=== PATIENT | female | born 1960 | race Caucasian/White ===

== ENCOUNTER 2019-09-04 19:33 | Inpatient (IN) | payer OTHER ==
[~2019-09-04] VITALS: Ht 170.2 cm; Wt 61.2 kg
--- NOTE | 2019-09-04 20:16 | NUR ---
PT CAME TO THE ED C/O R SIDED LOWER QUADRANT ABD PAIN SINCE 1500 TODAY. +N/V. PAIN WORSENS UPON MOVEMENT PER PT. 12/21 PS. PT AAOX4, RESPIRATIONS EVEN AND UNLABORED ON RA W/ NAD NOTED. PT CONNECTED TO THE MONITOR AND POX.
[2019-09-04] MEDS ORDERED: MORPHINE SULFATE INJ 4 MG/ML DISP.SYRIN ONE ×2 (20:22→21:20)
[2019-09-04] MEDS ORDERED: ONDANSETRON HCL/PF 4 MG/2 ML VIAL ONE (20:22)
[2019-09-04] MEDS ORDERED: ACETAMINOPHEN ES 500 MG TABLET ONE (20:22)
[2019-09-04] MEDS ORDERED: ONDANSETRON HCL/PF 4 MG/2 ML VIAL IVP ONE (20:30)
[2019-09-04] MEDS ORDERED: ACETAMINOPHEN ES 500 MG TABLET PO ONE (20:30)
[2019-09-04] MEDS ORDERED: IV NS 0.9% 1,000 ML BAG IV ONE (20:30)
[2019-09-04] MEDS ORDERED: MORPHINE SULFATE INJ 2 MG/ML DISP.SYRIN IV ONE ×2 (20:30→21:30)
[2019-09-04 20:34] LABS: BASOPHILS % (AUTO) 0.3 % (0.0-2.0); EOSINOPHILS % (AUTO) 0.6 % (0.0-6.0); HEMATOCRIT 42 % (33-45); HEMOGLOBIN 13.9 g/dL (11.5-14.8); LYMPHOCYTES # (AUTO) 1.4 /CMM (0.8-4.8); LYMPHOCYTES % (AUTO) 10.6 % (20.0-44.0); MEAN CORPUSCULAR HGB CONC 33 g/dl (31.0-36.0); MEAN CORPUSCULAR VOLUME 100 fL (82-100); MONOCYTES # (AUTO) 0.6 /CMM (0.1-1.30); MONOCYTES % (AUTO) 4.8 % (2.0-12.0); NEUTROPHILS # (AUTO) 10.9 /CMM (1.8-8.9); NEUTROPHILS % (AUTO) 83.7 % (43.0-81.0); PLATELET COUNT (AUTO) 284 /CMM (150-450); RED BLOOD CELL COUNT(AUTO) 4.22 MIL/uL (4.0-5.2)
[2019-09-04 20:43] LABS: CALCIUM, SERUM 9.3 mg/dL (8.5-10.1); CREATININE 0.6 mg/dL (0.6-1.3); POTASSIUM 3.2 mmol/L (3.5-5.1)
[2019-09-04 20:50] LABS: ALBUMIN 3.9 g/dL (3.4-5.0); BILIRUBIN,DIRECT 0.1 mg/dL (0.0-0.2); BILIRUBIN,TOTAL 0.2 mg/dL (0.2-1.0); TOTAL PROTEIN, SERUM 7.8 g/dL (6.4-8.2)
[2019-09-04 20:54] LABS: APPEARANCE,URINE Clear (CLEAR); BILIRUBIN,URINE Negative (NEGATIVE); BLOOD, URINE Negative Ery/uL (NEGATIVE); COLOR,URINE Yellow (YELLOW); KETONES,URINE Negative (NEGATIVE); LEUKOCYTE ESTERASE ,URINE Moderate (NEGATIVE); NITRITE, URINE Negative (NEGATIVE); PROTEIN,URINE Negative (NEGATIVE); UGLUCOSE Negative (NEGATIVE); UROBILINOGEN,URINE 0.2 EU/dL (0.2)
[2019-09-04 21:04] LABS: BACTERIA,URINE Moderate /HPF (None Seen); RBC,URINE 0-2 /HPF (0-2); SQUAMOUS EPITHELIAL CELL,UR Moderate /HPF (None Seen)
--- NOTE | 2019-09-04 21:19 | NUR ---
PT TAKEN TO CT
--- NOTE | 2019-09-04 21:36 | NUR ---
COVID SWAB SENT TO LAB
--- NOTE | 2019-09-04 21:36 | NUR ---
PT BACK FROM CT
[2019-09-04] MEDS ORDERED: PIPERACILLIN /TAZOBACTAM 3.375 G VIAL IV ONE (21:57)
[2019-09-04] MEDS ORDERED: PIPERACILLIN /TAZOBACTAM 3.375 G in IV D5W 50 ML IV ONE (22:00)
--- NOTE | 2019-09-04 22:17 | NUR ---
PAGED DR RUSSELL
--- NOTE | 2019-09-04 22:19 | NUR ---
328-[address] [facility]
[2019-09-04] MEDS ORDERED: IBUPROFEN 600 MG TABLET PO ONE ×2 (22:30→23:07)
--- NOTE | 2019-09-04 23:15 | NUR ---
REPORT GIVEN TO NANDO JAMESON
[2019-09-04] MEDS ORDERED: BUSP10TA3 PO (23:27)
[2019-09-04] MEDS ORDERED: AMLO5TAB9 PO (23:27)
[2019-09-04] MEDS ORDERED: ESCI20TA PO (23:27)
[2019-09-04] MEDS ORDERED: ONDANSETRON HCL/PF 4 MG/2 ML VIAL IVP PRN (23:30)
[2019-09-04] MEDS ORDERED: Z GUARD REMEDY 2 OZ OINT TP PRN (23:30)
[2019-09-04] MEDS ORDERED: ACETAMINOPHEN 325 MG TABLET PO PRN (23:30)
[2019-09-04 23:47] VITALS: BP 101/57
--- NOTE | 2019-09-04 23:47 | NUR ---
MS RN ADMITTING NOTES PATIENT ARRIVED TO UNIT VIA WHEELCHAIR [id number], ACCOMPANIED BY NANDO ROWE; PATIENT AWAKE, A/OX4; BREATHING EVEN AND UNLABORED; NO SOB NOTED; PATIENT TOLERATING ROOM AIR WELL; SKIN ASSESSMENT DONE, NO WOUNDS NOTED; SKIN INTACT; L AC #20 IV SITE CAME OUT; NEW IV ACCESS OBTAINED; R WRIST #22, INFUSING NS @ 100ML/HR, PATIENT TOLERATING FLUIDS WELL; ISOLATION PRECAUTIONS MAINTAINED, AWAITING COVID RESULTS; PATIENT AWARE OF NPO STATUS; MEDICAL HX OBTAINED; PATIENT ORIENTED TO ROOM AND STAFF; PATIENT COMPLAINT OF 9/10 RLQ ABDOMINAL PAIN; VITAL SIGNS STABLE; MORPHINE 2MG ADMINISTERED PER MD ORDER; SAFETY PRECAUTIONS IMPLEMENTED; BED LOCKED IN LOW POSITION; SIDE RAILS X2; CALL LIGHT WITHIN REACH; WILL CONT TO MONITOR
[2019-09-05] VITALS (8 sets, daily range): BP systolic 107–128; BP diastolic 60–74
--- NOTE | 2019-09-05 00:02 | NUR ---
PT TRANSFERRED TO ROOM IN STABLE CONDITION
[2019-09-05] MEDS: PANTOPRAZOLE 40 MG VIAL IV SCH ×2 (00:28→22:21)
[2019-09-05] MEDS: IV NS 0.9% 1,000 ML IV PRN (00:29)
[2019-09-05] MEDS: MORPHINE SULFATE INJ 2 MG/ML DISP.SYRIN IV PRN ×5 (00:31→22:32)
[2019-09-05] MEDS ORDERED: PIPERACILLIN /TAZOBACTAM 2.25 G VIAL IV ONE (02:47)
[2019-09-05] MEDS ORDERED: PIPERACILLIN /TAZOBACTAM 4.5 G in IV D5W 50 ML IV SCH ×3 (04:00)
--- NOTE | 2019-09-05 04:00 | NUR ---
MS RN NOTES PATIENT REQUESTED FOR IVF TO BE STOPPED AFTER ZOSYN FINISHED; PATIENT REPORTED TO RESTART IVF ONCE SHE IS AWAKE; PATIENT WOULD LIKE TO USE BATHROOM AND NOT HAVE TO WAIT FOR US TO DISCONNECT HER FROM IV; WILL CONT TO MONITOR
--- NOTE | 2019-09-05 06:38 | NUR ---
MS RN CLOSING NOTES PATIENT RESTING IN BED COMFORTABLY; A/OX4; BREATHING EVEN AND UNLABORED; NO SOB NOTED; PATIENT TOLERATING ROOM AIR WELL; PATIENT ABLE TO MAKE NEEDS KNOWN; R WRIST # 22 INTACT AND PATENT, FLUSHING WELL; NO S/S OF REDNESS OR INFILTRATION NOTED; ISOLATION PRECAUTIONS MAINTAINED; NPO STATUS MAINTAINED; ALL NEEDS RENDERED; SAFETY PRECAUTIONS IMPLEMENTED; BED LOCKED IN LOW POSITION; SIDE RAILS X2; CALL LIGHT WITHIN EASY REACH; WILL ENDORSE CELSO TO ONCOMING SHIFT
[2019-09-05] MEDS ORDERED: POTASSIUM CHLORIDE 20 MEQ POWDER PACKET NG SCH (07:00)
--- NOTE | 2019-09-05 08:00 | NUR ---
MS RN AM NOTES PATIENT AWAKE, A/OX4; BREATHING EVEN AND UNLABORED; NO SOB NOTED; PATIENT TOLERATING ROOM AIR WELL;SKIN INTACT; RT WRIST #22, INFUSING NS @ 100ML/HR, PATIENT TOLERATING FLUIDS WELL; ISOLATION PRECAUTIONS MAINTAINED, AWAITING COVID RESULTS; PATIENT AWARE OF NPO STATUS; PT IS COMPLIANT.SAFETY PRECAUTIONS IMPLEMENTED; BED LOCKED IN LOW POSITION; SIDE RAILS X2; CALL LIGHT WITHIN REACH; WILL CONT TO MONITOR
[2019-09-05 08:10] LABS: BASOPHILS % (AUTO) 0.2 % (0.0-2.0); HEMATOCRIT 38 % (33-45); HEMOGLOBIN 12.5 g/dL (11.5-14.8); LYMPHOCYTES # (AUTO) 1.2 /CMM (0.8-4.8); LYMPHOCYTES % (AUTO) 12.5 % (20.0-44.0); MEAN CORPUSCULAR HGB CONC 33 g/dl (31.0-36.0); MEAN CORPUSCULAR VOLUME 100 fL (82-100); MONOCYTES # (AUTO) 0.7 /CMM (0.1-1.30); MONOCYTES % (AUTO) 7.4 % (2.0-12.0); NEUTROPHILS # (AUTO) 7.5 /CMM (1.8-8.9); NEUTROPHILS % (AUTO) 78.9 % (43.0-81.0); PLATELET COUNT (AUTO) 247 /CMM (150-450); RED BLOOD CELL COUNT(AUTO) 3.85 MIL/uL (4.0-5.2); WHITE BLOOD COUNT (AUTO) 9.5 K/uL (4.3-11.0)
[2019-09-05] MEDS: ESCITALOPRAM OXALATE (10 MG) 10 MG TABLET PO SCH (08:34)
[2019-09-05] MEDS: busPIRone 5 MG TABLET PO SCH ×3 (08:34→17:20)
[2019-09-05] MEDS: AMLODIPINE BESYLATE 5 MG TABLET PO SCH (08:35)
[2019-09-05 08:47] LABS: CALCIUM, SERUM 8.7 mg/dL (8.5-10.1); CREATININE 0.7 mg/dL (0.6-1.3); MAGNESIUM 1.9 mg/dL (1.8-2.4); PHOSPHORUS 4.4 mg/dL (2.5-4.9); POTASSIUM 3.3 mmol/L (3.5-5.1)
[2019-09-05] MEDS: PIPERACILLIN /TAZOBACTAM 3.375 G in IV D5W 100 ML IV SCH ×2 (08:57→17:20)
[2019-09-05] MEDS ORDERED: POTASSIUM CL. PREMIX PERIPHER. 50 ML IV SCH (09:00)
--- NOTE | 2019-09-05 09:00 | NUR ---
INFUSED ZOSYN IV PRIOR TO ADMINISTERING MAG AND POTASSIUM IV DELAYING THE ELECTROLYTE IV REPLACEMENT INFUSION.
--- NOTE | 2019-09-05 09:20 | NUR ---
SEEN BY BHARTI GAXIOLA AND ORDERED FOR PT TO BE ON NPO EXCEPT MEDS.WE WILL CHANGE POTASSIUM IV TO PO.PT VERBALIZED THAT HER ELECTROLYTES HAS BEEN LOW THAT IS WHY SHE TAKES SUPPLEMENTS DAILY TO REPLACE HER POTASSIUM AND MAGNESIUM.
[2019-09-05] MEDS ORDERED: POTASSIUM CHLORIDE 20 MEQ TAB.PRT.SR PO ONE (10:00)
[2019-09-05] MEDS: Magnesium 1GM/D5W 100ML PREMIX 100 ML IV SCH ×2 (12:06→13:18)
--- NOTE | 2019-09-05 18:58 | NUR ---
Pt brought to OR for Laparoscopic VS Open appendectomy procedure with all the consents signed. Stable VS. Pt denies any pain or distress. Endorsed to night manager nurse care.
--- NOTE | 2019-09-05 19:20 | NUR ---
MS RN NOTES PATIENT CURRENTLY IN OR FOR LAPAROSCOPIC VS OPEN APPENDECTOMY.
[2019-09-05] MEDS ORDERED: MIDAZOLAM HCL 2 MG/2ML VIAL ONE (19:22)
[2019-09-05] MEDS ORDERED: ROCURONIUM BROMIDE 50 MG/5 ML ONE (19:23)
[2019-09-05] MEDS ORDERED: FAMOTIDINE/PF INJ 20 MG/2 ML VIAL IV ONE (19:23)
[2019-09-05] MEDS ORDERED: FENTANYL PF 250MCG/5ML AMPUL ONE (19:23)
[2019-09-05] MEDS ORDERED: BUPIVACAINE MPF W/EPI 0.25% 30 ML VIAL ONE (19:32)
[2019-09-05] MEDS ORDERED: LIDOCAINE HCL/PF 1% 30 ML SDV ONE (19:32)
--- NOTE | 2019-09-05 22:10 | NUR ---
MS RN NOTES RECEIVED PATIENT FROM SURGERY, ALERT AND ORIENTED X 4. VERBALLY RESPONSIVE AND ABLE TO FOLLOW DIRECTIONS. BREATHING REGULAR AND UNLABORED ON OXYGEN AT 2L/MIN VIA NASAL CANNULA. RIGHT WRIST AND RIGHT FOREARM BOTH G22 IV LINES INTACT AND PATENT, INFUSING WELL WITH NO BLEEDING OR S/S OF INFILTRATION NOTED. SEEN WITH ABDOMINAL INCISIONS WITH NO ACTIVE BLEEDING NOTED. DRESSING CLEAN AND DRY. WITH LEFT ABDOMEN THEO DRAIN INTACT WITH MODERATE SEROSANGUINEOUS OUTPUT. COMPLAINED OF 8/10 ABDOMINAL PAIN, NON-PHARMACOLOGICAL INTERVENTIONS PROVIDED. BED LOW AND LOCKED ON SEMI FOWLERS POSITION. WILL CONTINUE TO MONITOR.
--- NOTE | 2019-09-05 22:35 | NUR ---
MS RN NOTES COMPLAINED OF 8/10 ABDOMINAL PAIN, MORPHINE 4MG GIVEN VIA IV PUSH. NON-PHARMACOLOGICAL INTERVENTIONS PROVIDED. VITAL SIGNS WNL. WILL CONTINUE TO MONITOR.
--- NOTE | 2019-09-05 23:00 | NUR ---
MS RN NOTES MAINTAINED NOTHING BY MOUTH PER . PATIENT MADE AWARE.
--- NOTE | 2019-09-05 23:00 | NUR ---
MS RN NOTES REFUSED DVT PUMP PLACEMENT, RISK AND BENEFITS EXPLAINED.
[2019-09-06] MEDS: PIPERACILLIN /TAZOBACTAM 3.375 G in IV D5W 100 ML IV SCH ×3 (00:08→16:08)
[2019-09-06 00:50] VITALS: BP 118/75
[2019-09-06 01:50] VITALS: BP 121/78
--- NOTE | 2019-09-06 07:30 | NUR ---
MS/RN OPENING NOTES Received patient in bed, A&O x 4. Breathing even and non-labored on RA, no SOB noted. No respiratory cardiac distress noted. Patient IV access noted on the right wrist #22, patent and intact, infusing NS @ 100ml/hr. No s/s of infection/infiltration noted on the site. Patient remains NPO, explain its importance. Patient verbalized understanding. J-tube in place, cranberry color output of 10 mL noted. Sensation from all peripheral extremities noted. Fall precautions maintained. Will continue to monitor for any changes in condition.
[2019-09-06 08:00] VITALS: BP 159/86
[2019-09-06] MEDS: busPIRone 5 MG TABLET PO SCH ×3 (08:52→16:07)
[2019-09-06] MEDS: ESCITALOPRAM OXALATE (10 MG) 10 MG TABLET PO SCH (08:52)
[2019-09-06] MEDS: MORPHINE SULFATE INJ 2 MG/ML DISP.SYRIN IV PRN ×2 (08:53→20:21)
[2019-09-06] MEDS: AMLODIPINE BESYLATE 5 MG TABLET PO SCH (08:53)
[2019-09-06 10:02] LABS: ALBUMIN 2.8 g/dL (3.4-5.0); BILIRUBIN,TOTAL 0.3 mg/dL (0.2-1.0); CALCIUM, SERUM 8.6 mg/dL (8.5-10.1); CREATININE 0.7 mg/dL (0.6-1.3); MAGNESIUM 1.9 mg/dL (1.8-2.4); PHOSPHORUS 3.5 mg/dL (2.5-4.9); POTASSIUM 3.8 mmol/L (3.5-5.1); TOTAL PROTEIN, SERUM 6.8 g/dL (6.4-8.2)
[2019-09-06 10:08] LABS: BASOPHILS % (AUTO) 0.1 % (0.0-2.0); HEMATOCRIT 38 % (33-45); HEMOGLOBIN 12.4 g/dL (11.5-14.8); LYMPHOCYTES # (AUTO) 0.8 /CMM (0.8-4.8); MEAN CORPUSCULAR HGB CONC 33 g/dl (31.0-36.0); MEAN CORPUSCULAR VOLUME 100 fL (82-100); MONOCYTES # (AUTO) 0.7 /CMM (0.1-1.30); MONOCYTES % (AUTO) 6.3 % (2.0-12.0); NEUTROPHILS # (AUTO) 9.5 /CMM (1.8-8.9); NEUTROPHILS % (AUTO) 86.6 % (43.0-81.0); PLATELET COUNT (AUTO) 241 /CMM (150-450); RED BLOOD CELL COUNT(AUTO) 3.81 MIL/uL (4.0-5.2)
[2019-09-06] MEDS ORDERED: HYDROCODONE/APAP 5/325MG TABLET PO PRN (14:00)
[2019-09-06] MEDS ORDERED: ZOLPIDEM TARTRATE 5 MG TABLET PO PRN (14:30)
[2019-09-06 16:00] VITALS: BP 160/83
--- NOTE | 2019-09-06 19:00 | NUR ---
MS/RN CLOSING NOTES Patient in bed, A&O x 4. No complaints of pain/discomfort at this time, last norco given at 1412. Breathing even and non-labored on RA, no SOB noted. No cardiac distress noted. Patient IV access noted on the left wrist #18, patent and intact, infusing NS @ 75ml/hr. No s/s of infection/infiltration noted on the site. J-tube drain in place, cranberry output of 15 cc noted. Sensation from all peripheral extremities noted. Patient tolerating clear liquid diet. Patient ambulated in the afternoon, steady gait noted. Fall precautions maintained. Will endorse to shift supervisor film processing nurse.
[2019-09-06 20:00] VITALS: BP 146/85
--- NOTE | 2019-09-06 20:00 | NUR ---
MS RN OPENING NOTE: Received patient in bed, awake and alert. Patient shows no signs of distress. Patient IV access on right wrist; 22gauge. IV site patent, no redness or infiltration. Patient breathing unlabored and even. No SOB. Safety precaution is in place. Bed is in the lowest position, brakes are on, siderails x2 are up, and call light within reach. Will continue care of plan.
--- NOTE | 2019-09-06 20:21 | NUR ---
RN MS NOTE: Patient complain of abdominal pain. Patient states pain is throughout her abdomen. Patient rates pain 10 on a 0-10 scale and is aching. Administered PRN Morphine per order.
[2019-09-06] MEDS: PANTOPRAZOLE 40 MG VIAL IV SCH (22:51)
[2019-09-07] MEDS: PIPERACILLIN /TAZOBACTAM 3.375 G in IV D5W 100 ML IV SCH ×3 (00:24→16:19)
[2019-09-07] MEDS: MORPHINE SULFATE INJ 2 MG/ML DISP.SYRIN IV PRN ×5 (00:25→21:10)
--- NOTE | 2019-09-07 06:40 | NUR ---
MS RN CLOSING NOTE: Patient in bed sleeping comfortably. She shows no signs of distress. She is easily arousal. Paid medication administered per order. Patient breathing is equal and unlabored; no SOB. Safety precaution is maintained; bed in lowest position, side rails x2 are up, bed brakes are on, and call light within reach. Will endorse to oncoming shift.
[2019-09-07 07:08] LABS: BASOPHILS % (AUTO) 0.2 % (0.0-2.0); EOSINOPHILS % (AUTO) 0.4 % (0.0-6.0); HEMATOCRIT 38 % (33-45); HEMOGLOBIN 12.6 g/dL (11.5-14.8); LYMPHOCYTES # (AUTO) 0.9 /CMM (0.8-4.8); LYMPHOCYTES % (AUTO) 11.9 % (20.0-44.0); MEAN CORPUSCULAR HGB CONC 33 g/dl (31.0-36.0); MEAN CORPUSCULAR VOLUME 99 fL (82-100); MONOCYTES # (AUTO) 0.8 /CMM (0.1-1.30); MONOCYTES % (AUTO) 9.7 % (2.0-12.0); NEUTROPHILS # (AUTO) 6.1 /CMM (1.8-8.9); NEUTROPHILS % (AUTO) 77.8 % (43.0-81.0); PLATELET COUNT (AUTO) 233 /CMM (150-450); RED BLOOD CELL COUNT(AUTO) 3.88 MIL/uL (4.0-5.2); WHITE BLOOD COUNT (AUTO) 7.8 K/uL (4.3-11.0)
[2019-09-07 08:00] VITALS: BP_SYST 103; BP_SYST 143; BP_DIAS 56; BP_DIAS 84
--- NOTE | 2019-09-07 08:00 | NUR ---
MS RN OPENING NOTE: Received patient in bed, awake and alert. Patient shows no signs of distress. Patient IV access on right wrist; 22gauge. IV site patent, no redness or infiltration. IVF NS at 100 ml/hr infusing well.Patient breathing unlabored and even. No SOB. Safety precaution is in place. Bed is in the lowest position, brakes are on, siderails x2 are up, and call light within reach. Will continue care of plan.
[2019-09-07] MEDS: busPIRone 5 MG TABLET PO SCH ×3 (08:19→16:02)
[2019-09-07] MEDS: ESCITALOPRAM OXALATE (10 MG) 10 MG TABLET PO SCH (08:19)
[2019-09-07] MEDS: AMLODIPINE BESYLATE 5 MG TABLET PO SCH (08:20)
[2019-09-07] MEDS ORDERED: SALINE NASAL SPRAY 0.65% 1 BOTTLE BOTTLE NS PRN (09:00)
--- NOTE | 2019-09-07 10:11 | NUR ---
PT VERBALIZED THAT SHE HAD A BAD REACTION (BAD RASH) WITH NORCO THE LAST TIME SHE TOOK IT WHEN SHE HAD SHOULDER SX IN THEN PAST. NOTIFIED JOAO BRASWELL NP AND LILIANA MACK. Addendum: 09/07/19 at 1014 by JACINTO LUBIN RN PT VERBALIZED THAT GOOD THING SHE DIDN'T HAVE A REACTION FROM THE NORCO THAT SHE TOOK YESTERDAY AFTERNOON.
--- NOTE | 2019-09-07 10:16 | NUR ---
PT TOOK TYLENOL AT 0830 THIS MORNING DUE TO C/O BAD HEADACHE WITH NO REACTION NOTED. PT DENIES ANY ALLERGIC REACTION.
[2019-09-07] MEDS: IV NS 0.9% 1,000 ML IV PRN (10:18)
[2019-09-07] MEDS ORDERED: HYDROCODONE/APAP 5/325MG TABLET PO PRN (11:00)
[2019-09-07] MEDS ORDERED: ACETAMINOPHEN 325 MG TABLET PO PRN (11:00)
[2019-09-07] MEDS ORDERED: BISACODYL (5 MG) 5 MG TABLET.DR PO PRN (11:30)
[2019-09-07] MEDS: DOCUSATE SODIUM 100 MG CAPSULE PO SCH ×2 (11:34→16:02)
[2019-09-07 16:00] VITALS: BP 152/95
[2019-09-07 16:23] VITALS: BP 152/71
--- NOTE | 2019-09-07 16:29 | NUR ---
PT AMBULATED ALONG THE HALLWAY 4X AND SMOKED OUTSIDE ACCOMPANIED BY STRIKER OFF. STILL HASN'T PASS GAS AND NO BM FOR THE PAST 3 DAYS.
--- NOTE | 2019-09-07 17:10 | NUR ---
PT MADE SMALL BM AND PASSED GAS IN THE TOILET .C/O SEVERE ABD PAIN AND WANTS MORPHINE SULFATE IV.
--- NOTE | 2019-09-07 18:49 | NUR ---
CHANGED PT'S DIET TO FULL LIQUIDS AND MINOR,PROFESSOR OF RHETORIC REMOVE THE THEO DRAIN WITH 5 ML SEROSANGUINEOUS DRAINAGE OUTPUT.NO BLEEDING NOTED.PT TOLERATED WELL.DRESSING CLEAN AND DRY. ENCOURAGED TO CONTINUE WALKING ALONG THE HALLWAY TO PASS GAS EVEN MORE.WILL CONTINUE TO MONITOR. CALL LIGHT PLACED WITHIN REACH.
[2019-09-07 20:00] VITALS: BP 150/87
--- NOTE | 2019-09-07 20:35 | NUR ---
PRN TYLENOL/HEAD ACHE/T 99.2: PRN TYLENOL 650 MG TAB PO ADMINISTERED TO PT FOR C/O HEAD ACHE, NOTED TEMP 99.2. ENCOURAGE INCREASE PO INTAKE, PT ON IVF ORDERED. WILL CONTINUE TO MONITOR AND REASSESS PT.
[2019-09-07] MEDS: PANTOPRAZOLE 40 MG VIAL IV SCH (21:10)
--- NOTE | 2019-09-07 21:10 | NUR ---
PRN MORPHINE: PT C/O 11/21 UPPER AND LOWER ABDL PAIN, S/P LAP APPY, PRN MORPHINE 2MG IVP ADMINISTERED TO PT AT THIS TIME. WILL CONTINUE TO MONITOR AND REASSESS PT.
[2019-09-08] MEDS: MORPHINE SULFATE INJ 2 MG/ML DISP.SYRIN IV PRN ×3 (01:09→09:13)
[2019-09-08] MEDS: PIPERACILLIN /TAZOBACTAM 3.375 G in IV D5W 100 ML IV SCH ×2 (01:09→08:42)
--- NOTE | 2019-09-08 01:15 | NUR ---
MSRN VERBALIZES POST OP PAIN S/P LAP APPY, SCALE OF 10/10 PATIENT STATED. MORPHINE 2MG IVP ADMINISTERED ORDERED. BEDREST FOR NOW, SAFETY PRECAUTIONS EMPHASIZED, CALL LIGHT WITHIN REACH. REMINDED TO CALL STAFF FOR ANY FURTHER DISCOMFORTS. CLOSELY WATCHED.
[2019-09-08] MEDS: IV NS 0.9% 1,000 ML IV PRN (03:49)
[2019-09-08 05:20] VITALS: BP 126/88
--- NOTE | 2019-09-08 05:39 | NUR ---
prn morphine: pt c/o post op pain upper and lower abdl area, 11/21, requesting for morphine. prn morphine 2mg ivp administered at this time. on fall precautions. will continue to monitor and reassess pt.
--- NOTE | 2019-09-08 06:25 | NUR ---
rn notes: pt went down for smoke accompanied by estephania egan
--- NOTE | 2019-09-08 06:40 | NUR ---
rn notes: pt came back to the unit.
--- NOTE | 2019-09-08 06:48 | NUR ---
end of shift report: prn morphine administered to pt for c/o abdominal pain s/p lap appy. iv access remains patent and flushing well, infusing with ns at 100ml/hr, no s/s of iv infiltration noted. tolerated full liquid diet well, no episode of n/v noted throughout the shift. vs remains stable, needs attended. safety precautions for fall remains engaged, call light in reach, will endorse to day rn for continuity of care.
[2019-09-08 08:00] VITALS: BP 142/74
--- NOTE | 2019-09-08 08:00 | NUR ---
MS RN NOTES RECEIVED PT ALERT,AWAKE AND VERBALIZED POST OP PAIN S/P LAP APPY, SCALE OF 8/10 PATIENT STATED. WITH IVF NS AT 100 ML/HR INFUSING WELL. WILL ADMINISTER MORPHINE PRN ORDERED. BEDREST FOR NOW, SAFETY PRECAUTIONS EMPHASIZED, CALL LIGHT WITHIN REACH. REMINDED TO CALL STAFF FOR ANY FURTHER DISCOMFORTS.
[2019-09-08 08:42] VITALS: BP 142/74
[2019-09-08] MEDS: DOCUSATE SODIUM 100 MG CAPSULE PO SCH (08:42)
[2019-09-08] MEDS: AMLODIPINE BESYLATE 5 MG TABLET PO SCH (08:42)
[2019-09-08] MEDS: busPIRone 5 MG TABLET PO SCH ×2 (08:42→12:49)
[2019-09-08] MEDS: ESCITALOPRAM OXALATE (10 MG) 10 MG TABLET PO SCH (08:42)
[2019-09-08] MEDS ORDERED: AMOX-430 PO (12:29)
--- NOTE | 2019-09-08 15:30 | NUR ---
DISCHARGED PT HOME VIA PRIVATE CAR WITH STABLE V/S. DISCHARGE INSTRUCTIONS AND PRESCRIPTIONS GIVEN TO THE PT. IV H/L TO RT WRIST REMOVED WITH NO BLEEDING OR SWELLING NOTED. INSTRUCTED TO F/U WITH THE SURGEON,DR YVONNE CARR IN ONE WEEK. DENIES ANY PAIN OR DISTRESS.
== END 2019-09-08 15:45 | disposition home or self-care (01) | DRG 233 ==
LOC: ER 19:38 → MED 22:19
PROVIDERS: ATTEND Nurse Practitioner Acute Care
PROC: 0DTJ4ZZ Resection of Appendix, Percutaneous Endoscopic Approach (ICD-10-PCS; principal; 2019-09-05)
DX: K35.32 Acute appendicitis with perforation, localized peritonitis, and gangrene, without abscess (principal); E83.42 Hypomagnesemia; K56.7 Ileus, unspecified; Q43.8 Other specified congenital malformations of intestine; K86.1 Other chronic pancreatitis; E87.6 Hypokalemia; N39.0 Urinary tract infection, site not specified; I10 Essential (primary) hypertension; K40.20 Bilateral inguinal hernia, without obstruction or gangrene, not specified as recurrent; Z98.890 Other specified postprocedural states; F32.9 Major depressive disorder, single episode, unspecified; F17.200 Nicotine dependence, unspecified, uncomplicated; Z87.11 Personal history of peptic ulcer disease; Z87.81 Personal history of (healed) traumatic fracture; F10.11 Alcohol abuse, in remission; Y90.9 Presence of alcohol in blood, level not specified; Z79.899 Other long term (current) drug therapy; D72.829 Elevated white blood cell count, unspecified
CPT/HCPCS: 36415; 71045-TC; 80048-TC; 80053-TC; 80061-TC; 80076-TC; 81000-TC; 83690-TC; 83735-TC; 84100-TC; 84703-TC; 85025-TC; 85730-TC; 87081-TC; 87086-TC; 88304-TC; 93307-TC; C9113; G0378; J0690; J1100; J2250; J2270; J2405; J2543; J2704; J2765; J3010; J3475; J3480; J3490; J7030; J7060; U0003-CS

== ENCOUNTER 2020-07-26 06:50 | Inpatient (IN) | payer OTHER ==
[~2020-07-26] VITALS: Ht 170.2 cm; Wt 63.5 kg
[~2020-07-26 06:50] MED LIST: AMLO-212 PO; AMOX-430 PO; BUSP10TA3 PO; ESCI20TA PO
--- NOTE | 2020-07-26 07:07 | NUR ---
PATIENT BIBSELF C/O ABD PAIN SINCE 1 AM AFTER EATING, + N/V, PATIENT STATES THROWING UP BILE. PATIENT A/OX4, RR EVEN AND UNLABORED. PATIENT CONNCETED TO PARKING ENFORCEMENT TECHNICIAN AND POX. WILL CONTINUE TO MONITOR.
[2020-07-26] MEDS ORDERED: MORPHINE SULFATE INJ 4 MG/ML DISP.SYRIN ONE ×2 (07:14→09:08)
[2020-07-26] MEDS ORDERED: FAMOTIDINE/PF INJ 20 MG/2 ML VIAL IV ONE ×2 (07:15→07:30)
[2020-07-26] MEDS ORDERED: ONDANSETRON HCL/PF 4 MG/2 ML VIAL ONE ×2 (07:15→09:08)
[2020-07-26] MEDS ORDERED: IV NS 0.9% 1,000 ML BAG IV ONE (07:30)
[2020-07-26] MEDS ORDERED: MORPHINE SULFATE INJ 2 MG/ML DISP.SYRIN IV ONE ×2 (07:30→09:30)
[2020-07-26] MEDS ORDERED: ONDANSETRON HCL/PF 4 MG/2 ML VIAL IVP ONE ×2 (07:30→09:30)
[2020-07-26 07:52] LABS: BASOPHILS # (AUTO) 0.1 /CMM (0.0-0.2); BASOPHILS % (AUTO) 0.4 % (0.0-2.0); EOSINOPHILS % (AUTO) 0.7 % (0.0-6.0); HEMATOCRIT 46 % (33-45); HEMOGLOBIN 15.5 g/dL (11.5-14.8); LYMPHOCYTES # (AUTO) 2.5 /CMM (0.8-4.8); LYMPHOCYTES % (AUTO) 18.9 % (20.0-44.0); MEAN CORPUSCULAR HGB CONC 34 g/dl (31.0-36.0); MEAN CORPUSCULAR VOLUME 100 fL (82-100); MONOCYTES # (AUTO) 0.6 /CMM (0.1-1.30); MONOCYTES % (AUTO) 4.4 % (2.0-12.0); NEUTROPHILS % (AUTO) 75.6 % (43.0-81.0); PLATELET COUNT (AUTO) 380 /CMM (150-450); RED BLOOD CELL COUNT(AUTO) 4.57 MIL/uL (4.0-5.2); WHITE BLOOD COUNT (AUTO) 13.3 K/uL (4.3-11.0)
[2020-07-26 08:06] LABS: CALCIUM, SERUM 9.8 mg/dL (8.5-10.1); CREATININE 0.7 mg/dL (0.6-1.3); POTASSIUM 4.1 mmol/L (3.5-5.1)
[2020-07-26 08:10] LABS: ALBUMIN 4.4 g/dL (3.4-5.0); BILIRUBIN,DIRECT 0.1 mg/dL (0.0-0.2); BILIRUBIN,TOTAL 0.3 mg/dL (0.2-1.0); TOTAL PROTEIN, SERUM 8.7 g/dL (6.4-8.2)
[2020-07-26] MEDS ORDERED: CT SWABBABLE VALVE TRANS SET 1 EA INFUS.SET MC ONE (08:22)
[2020-07-26] MEDS ORDERED: IOHEXOL-300 100 ML VIAL IV ONE (08:22)
[2020-07-26] MEDS ORDERED: IV NS 0.9% 250 ML IV ONE (08:22)
--- NOTE | 2020-07-26 08:25 | NUR ---
wheeled patient to ct accompanied by jack
--- NOTE | 2020-07-26 08:36 | NUR ---
patient came back from ct
[2020-07-26 08:55] LABS: BILIRUBIN,URINE Negative (NEGATIVE); COLOR,URINE YELLOW (YELLOW); LEUKOCYTE ESTERASE ,URINE Small (NEGATIVE); NITRITE, URINE Positive (NEGATIVE); PROTEIN,URINE Negative (NEGATIVE); UGLUCOSE Negative (NEGATIVE); UROBILINOGEN,URINE 0.2 EU/dL (0.2)
[2020-07-26 09:06] LABS: BACTERIA,URINE Many /HPF (None Seen); RBC,URINE 0-2 /HPF (0-2)
[2020-07-26 09:07] LABS: SQUAMOUS EPITHELIAL CELL,UR Few /HPF (None Seen)
--- NOTE | 2020-07-26 09:14 | NUR ---
covid specimen obtained and sent to lab.
--- NOTE | 2020-07-26 09:19 | NUR ---
CALLED SUR[address] [phone] LEFT [facility] [place].
--- NOTE | 2020-07-26 09:26 | NUR ---
DR. DORADO SPEAKING WITH DR. MARTÍNEZ
[2020-07-26] MEDS ORDERED: Z GUARD REMEDY 2 OZ OINT TP PRN (09:30)
[2020-07-26] MEDS ORDERED: ACETAMINOPHEN 325 MG TABLET PO PRN (09:30)
--- NOTE | 2020-07-26 09:53 | NUR ---
NEGATIVE COVID TEST PER LAB.
[2020-07-26] MEDS ORDERED: PANT40TA49 PO (10:05)
--- NOTE | 2020-07-26 11:00 | NUR ---
GOT BED 312-1
--- NOTE | 2020-07-26 11:05 | NUR ---
report given to Alison COLLIER for olegario
--- NOTE | 2020-07-26 11:19 | NUR ---
wheeled patient via gurney accompanied by emt in no distress going to room 312. RN assigned at bedside to assume care.
--- NOTE | 2020-07-26 11:33 | NUR ---
SOFTWARE PERFORMANCE ENGINEER NOTES RECEIVED PATIENT VIA GURNEY FROM ER DEPARTMENT. PATIENT IS A/O X4. PATIENT IS BREATHING EVENLY AND UNLABORED ON ROOM AIR. O2 SATURATION WAS 98%, HR 79 TEMP 98.7, RR 18 AND BP 128/78. PATIENT'S SKIN INTACT. PATIENT IS AMBULATORY. PATIENT HAS LAC #20 GAUGE PATENT AND INTACT. PATIENT IS NPO. PATIENT HAS NGT CONNECTED TO SUCTION. PATIENT WAS ORIENTED TO THE ROOM. SAFETY MEASURES ARE IN PLACE BED LOW LOCKED AND CALL LIGHT WITHIN REACH. WILL CONTINUE TO MONITOR.
[2020-07-26] MEDS ORDERED: DIATR MEGLU/DIATRIZOATE SODIUM 120 ML BOTTLE (GASTROGRAPHIN) ONE (11:38)
[2020-07-26] MEDS: IV 1/2NS 1000 ML 1,000 ML IV PRN (11:47)
[2020-07-26] MEDS: PANTOPRAZOLE 40 MG VIAL IV SCH (11:56)
[2020-07-26] MEDS ORDERED: ZOSYN IVPB 3.375 G in IV D5W 50ml IV ONE (13:00)
[2020-07-26] MEDS ORDERED: PIPERACILLIN /TAZOBACTAM 2.25 G in IV D5W 50 ML IV SCH (13:00)
[2020-07-26] MEDS: MORPHINE SULFATE INJ 2 MG/ML DISP.SYRIN IV PRN ×3 (15:18→23:39)
[2020-07-26 16:00] VITALS: BP 100/58
--- NOTE | 2020-07-26 16:26 | NUR ---
RN NOTES PATIENT HAS NGT SUPPOSED TO BE CONNECTED TO SUCTION. MD ORDERED SMALL BOWEL OBSTRUCTION FOLLOW THROUGH SERIES WHICH NEEDS PATIENT TO BE OFF SUCTIONING FOR NOW. MD AWARE. WILL RECONNECT SUCTION ONCE SERIES IS COMPLETE.
--- NOTE | 2020-07-26 18:47 | NUR ---
MS RN CLOSING NOTE PATIENT IS IN BED RESTING. PATIENT IS A/O X4. PATIENT IS BREATHING EVENLY AND UNLABORED ON ROOM AIR. BREATHING EVENLY AND UNLABORED. NO SIGNS OF DISTRESS NOTED. PATIENT'S SKIN INTACT. PATIENT IS AMBULATORY. PATIENT HAS LAC #20 GAUGE PATENT AND INTACT RUNNING 1/2 NS @ 75ML/HR. PATIENT IS NPO. PATIENT HAS NGT PAIN MEDICATION GIVEN NEEDED. SAFETY MEASURES ARE IN PLACE BED LOW LOCKED AND CALL LIGHT WITHIN REACH. WILL ENDORSE TO NEXT SHIFT
[2020-07-26] MEDS: ONDANSETRON HCL/PF 4 MG/2 ML VIAL IVP PRN (19:30)
--- NOTE | 2020-07-26 19:45 | NUR ---
MS RN NOTES RECEIVED ON BED A/O X4,BREATHING EASY,NO SOB,WITH NGT IN PLACE ,CLAMP AT THE MOMENT AWAITING X-RAY SERIES IS DONE AT 1999.PRESENT IVF INFUSING WELL ON LEFT AC VIA IV PUMP SITE PATENT.NPO STATUS,AMBULATES WITH STEADY GAIT.ABDOMINAL PAIN TOLERABLE AT THE MOMENT.CALL LIGHT IN REACH,NEEDS ANTICIPATED.
[2020-07-26 20:00] VITALS: BP 134/99
[2020-07-26] MEDS: PIPERACILLIN /TAZOBACTAM 3.375 G in IV D5W 100 ML IV SCH (20:18)
--- NOTE | 2020-07-26 23:39 | NUR ---
MS RN NOTES C/O ABDOMINAL PAIN 8/10 ON PAIN SCALE,MORPHINE 1MG IV GIVEN ORDERED.
--- NOTE | 2020-07-27 00:30 | NUR ---
MS RN NOTES YARN CARRIER AT BEDSIDE FOR SMALL BOWEL FOLLOW THRU SERIES
--- NOTE | 2020-07-27 02:00 | NUR ---
MS RN NOTES RADIOLOGY AT BEDSIDE,,FOLLOW SMALL BOWEL FOLLOW THRU SERIES
[2020-07-27] MEDS: PIPERACILLIN /TAZOBACTAM 3.375 G in IV D5W 100 ML IV SCH ×3 (03:57→19:57)
--- NOTE | 2020-07-27 04:00 | NUR ---
MS RN NOTES LAST X-RAY FOR SMALL BOWEL FOLLOW THRU SERIES
[2020-07-27] MEDS: MORPHINE SULFATE INJ 2 MG/ML DISP.SYRIN IV PRN ×4 (06:27→19:45)
--- NOTE | 2020-07-27 06:27 | NUR ---
MS RN NOTES C/O ABDOMINAL PAIN 8/10 ON PAIN SCALE,MORPHINE 1MG IV GIVEN PER PATIENT REQUEST.
[2020-07-27 06:45] LABS: BASOPHILS # (AUTO) 0.1 /CMM (0.0-0.2); BASOPHILS % (AUTO) 0.6 % (0.0-2.0); HEMATOCRIT 46 % (33-45); HEMOGLOBIN 15.9 g/dL (11.5-14.8); LYMPHOCYTES # (AUTO) 1.7 /CMM (0.8-4.8); LYMPHOCYTES % (AUTO) 11.3 % (20.0-44.0); MEAN CORPUSCULAR HGB CONC 34 g/dl (31.0-36.0); MEAN CORPUSCULAR VOLUME 100 fL (82-100); MONOCYTES % (AUTO) 6.9 % (2.0-12.0); NEUTROPHILS # (AUTO) 12.2 /CMM (1.8-8.9); NEUTROPHILS % (AUTO) 81.2 % (43.0-81.0); PLATELET COUNT (AUTO) 390 /CMM (150-450); RED BLOOD CELL COUNT(AUTO) 4.66 MIL/uL (4.0-5.2)
--- NOTE | 2020-07-27 06:59 | NUR ---
MS RN NOTES KEPT NPO ORDERED,AWAITING SURGICAL CONSULT/ INTERVENTION.SMALL BOWEL FOLLOW THROUGH SHOWS PARTIAL SMALL BOWEL OBSTRUCTION VS ILEUS.STILL WITH ABDOMINAL PAIN ON AND OFF,MANAGE WITH MORPHINE 1MG IV.NGT NOW CONNECTED TO WALL SUCTION AT LIS,NO OUTPUT.CALL LIGHT IN REACH,NEEDS ATTENDED.
--- NOTE | 2020-07-27 07:55 | NUR ---
MS RN OPENING NOTE PATIENT IS IN BED RESTING, PATIENT IS IN NO ACUTE DISTRESS, PATIENT IS ON ROOM AIR, TOLERATING WELL. NO SOB NOTED. PATIENT IS ON NG-TUBE WITH INTERMITTENT SUCTION. SAFETY PRECAUTIONS ARE ON, BED IS LOCKED IN THE LOWEST POSITION, WITH SIDE RAILS UP, CALL LIGHT WITHIN REACH, WILL CONTINUE TO MONITOR CLOSELY THROUGHOUT THE SHIFT.
[2020-07-27 08:18] LABS: ALBUMIN 4.3 g/dL (3.4-5.0); BILIRUBIN,TOTAL 0.4 mg/dL (0.2-1.0); CALCIUM, SERUM 9.8 mg/dL (8.5-10.1); CREATININE 1.9 mg/dL (0.6-1.3); PHOSPHORUS 5.1 mg/dL (2.5-4.9); POTASSIUM 4.2 mmol/L (3.5-5.1); TOTAL PROTEIN, SERUM 9.2 g/dL (6.4-8.2)
[2020-07-27] MEDS: PANTOPRAZOLE 40 MG VIAL IV SCH (09:08)
[2020-07-27 09:23] VITALS: BP 149/68
[2020-07-27] MEDS: IV 1/2NS 1000 ML 1,000 ML IV PRN (10:50)
[2020-07-27] MEDS: ONDANSETRON HCL/PF 4 MG/2 ML VIAL IVP PRN ×2 (11:37→19:00)
--- NOTE | 2020-07-27 15:40 | NUR ---
MS RN NOTE PATIENTS NG-TUBE CAME OUT, NOTIFIED DR. DORADO REGARDING PATIENT, DR. DORADO STATED LEAVE THE NG-TUBE OUT FOR NOW, UNTIL HE WILL COME SEE THE PATIENT.
[2020-07-27 16:17] VITALS: BP 157/96
--- NOTE | 2020-07-27 18:56 | NUR ---
MS RN CLOSE NOTE PATIENT IS IN BED RESTING, PATIENT IS IN NO ACUTE DISTRESS, PATIENT IS ON ROOM AIR, TOLERATING WELL. NO SOB NOTED. PATIENTS N-GTUBE IS OUT FOR THE MOMENT PER DR. DORADO. SAFETY PRECAUTIONS ARE ON, BED IS LOCKED IN THE LOWEST POSITION, WITH SIDE RAILS UP, CALL LIGHT WITHIN REACH, ENDORSE PATIENT TO [facility] N[facility] FOR CELSO.
--- NOTE | 2020-07-27 19:30 | NUR ---
MS RN NOTES RECEIVED ON BED A/O X4,CLAIMED SHE'S IN SO MUCH PAIN,NGT OUT,DR DORADO AWARE,KEPT OUT FOR NOW.PRESENT IVF INFUSING AT 125ML/HR RATE,INFUSING ON RIGHT HAND VIA IV PUMP.WILL MEDICATE FOR PAIN.
--- NOTE | 2020-07-27 19:45 | NUR ---
MS RN NOTES MORPHINE 1 MG IV GIVEN ORDERED FOR PAIN 9/10 ON PAIN SCALE.WILL MONITOR FOR RELIEF
[2020-07-27 20:00] VITALS: BP 150/104
--- NOTE | 2020-07-27 20:20 | NUR ---
MS RN NOTES HOSPITALIST SABA MADE AWARE,PATIENT WANTS SLEEPING FOR TONIGHT,INFORMED THAT PATIENT HAS NO NGT,THAT DR DORADO WANTS IT OUT FOR NOW.WITH NEW ORDER OF SLEEPING PILL NOTED AND CARRIED OUT.
--- NOTE | 2020-07-27 21:30 | NUR ---
MS RN NOTES WANG APARTMENT LOCATOR FOR DR DORADO,CALLED,MADE UPDATE OF PATIENT STATUS,WITH ORDER TO KEEP NPO,CBC,CMP IN AM,AND PT INR NOTED AND CARRIED OUT.TO SEE PATIENT IN THE MORNING.
--- NOTE | 2020-07-27 23:00 | NUR ---
MS RN NOTES BP RECHECK 143/99,STILL ON THE HIGH SIDE,HOSPITALIST MADE AWARE,PATIENT SAID SHE'S TAKING NORVASC 5MG PO DAILY.
[2020-07-27] MEDS: ZOLPIDEM TARTRATE 5 MG TABLET PO PRN (23:24)
[2020-07-27] MEDS: AMLODIPINE BESYLATE 5 MG TABLET PO SCH (23:41)
--- NOTE | 2020-07-27 23:41 | NUR ---
MS RN NOTES NORVASC 5MG PO GIVEN ORDERED,TAKEN WITH SIPS OF WATER.
--- NOTE | 2020-07-28 01:00 | NUR ---
MS RN NOTES SLEEPING,KEPT WARM AND COMFORTABLE
[2020-07-28] MEDS: PIPERACILLIN /TAZOBACTAM 3.375 G in IV D5W 100 ML IV SCH ×3 (03:47→19:15)
[2020-07-28] MEDS: IV 1/2NS 1000 ML 1,000 ML IV PRN ×2 (05:23→23:43)
--- NOTE | 2020-07-28 05:45 | NUR ---
MS RN NOTES AWAKE THIS TIME,NEONATAL INTENSIVE CARE UNIT NURSE AT BEDSIDE DRAWING BLOOD FOR LAB TEST.
[2020-07-28] MEDS: ONDANSETRON HCL/PF 4 MG/2 ML VIAL IVP PRN ×2 (05:58→12:07)
--- NOTE | 2020-07-28 05:58 | NUR ---
MS RN NOTES C/O NAUSEA,ZOFRAN 4MG IV GIVEN ORDERED.
[2020-07-28] MEDS: MORPHINE SULFATE INJ 2 MG/ML DISP.SYRIN IV PRN ×4 (05:59→21:00)
--- NOTE | 2020-07-28 05:59 | NUR ---
MS RN NOTES PAIN MANAGEMENT C/O ABDOMINAL PAIN 8/10 ON PAIN SCALE,MORPHINE 1 MG IV GIVEN.
[2020-07-28 06:27] LABS: BASOPHILS # (AUTO) 0.1 /CMM (0.0-0.2); BASOPHILS % (AUTO) 0.4 % (0.0-2.0); EOSINOPHILS % (AUTO) 0.1 % (0.0-6.0); HEMATOCRIT 44 % (33-45); HEMOGLOBIN 15.1 g/dL (11.5-14.8); LYMPHOCYTES # (AUTO) 2.2 /CMM (0.8-4.8); LYMPHOCYTES % (AUTO) 15.4 % (20.0-44.0); MEAN CORPUSCULAR HGB CONC 34 g/dl (31.0-36.0); MEAN CORPUSCULAR VOLUME 100 fL (82-100); MONOCYTES % (AUTO) 6.9 % (2.0-12.0); NEUTROPHILS # (AUTO) 11.1 /CMM (1.8-8.9); NEUTROPHILS % (AUTO) 77.2 % (43.0-81.0); PLATELET COUNT (AUTO) 356 /CMM (150-450); RED BLOOD CELL COUNT(AUTO) 4.44 MIL/uL (4.0-5.2); WHITE BLOOD COUNT (AUTO) 14.4 K/uL (4.3-11.0)
--- NOTE | 2020-07-28 06:34 | NUR ---
MS RN NOTES ON BED,CALM.NAUSEA IMPROVED,PAIN MANAGEMENT EFFECTIVE.IV ZOSYN INFUSING,KEPT NPO ORDERED.IN NO ACUTE DISTRESS.
--- NOTE | 2020-07-28 07:15 | NUR ---
RN OPENING NOTE PATIENT RECEIVED IN BED RESTING IN RIGHT LATERAL POSITION. PATIENT IS IN NO ACUTE DISTRESS, PATIENT IS ON ROOM AIR, TOLERATING WELL. NO SOB NOTED. RIGHT HAND 22 ROBYN RUNNING 1/2 NS AT 125 ML/HR. SAFETY PRECAUTIONS ON, BED IS LOCKED IN THE LOWEST POSITION, WITH SIDE RAILS UP, CALL LIGHT WITHIN REACH. WILL CONTINUE TO MONITOR AND PROVIDE CARE THROUGHOUT SHIFT.
[2020-07-28 07:23] LABS: ALBUMIN 4.1 g/dL (3.4-5.0); BILIRUBIN,TOTAL 0.5 mg/dL (0.2-1.0); CALCIUM, SERUM 9.9 mg/dL (8.5-10.1); CREATININE 1.1 mg/dL (0.6-1.3); POTASSIUM 3.7 mmol/L (3.5-5.1); TOTAL PROTEIN, SERUM 8.7 g/dL (6.4-8.2)
[2020-07-28 08:00] VITALS: BP 136/87
[2020-07-28 08:32] VITALS: BP 136/87
[2020-07-28] MEDS: PANTOPRAZOLE 40 MG VIAL IV SCH (09:00)
[2020-07-28] MEDS: AMLODIPINE BESYLATE 5 MG TABLET PO SCH (09:00)
--- NOTE | 2020-07-28 12:31 | NUR ---
received orders from Patrizia DETAIL MAKER AND FITTER to start patient on clear liquids and monitor nausea, vomiting, and if patient is able to tolerate feeds.
--- NOTE | 2020-07-28 15:53 | NUR ---
PT C/O OF ACHING ABDOMINAL PAIN OF 9/1O. PT NOTED WITH FACIAL GRIMACE. VS BP 142/88, HR 77, RR 18, SPO2 95%. PER PT REQUEST, MORPHINE 1MG IV Q4H PRN FOR PAIN ADMINISTERED AT THIS TIME. WILL CONTINUE WITH PLAN OF CARE
[2020-07-28 16:00] VITALS: BP 142/88
[2020-07-28 16:21] VITALS: BP 142/88
--- NOTE | 2020-07-28 17:16 | NUR ---
patient did not tolerate clear liquid diet. only at about 15% and constant emesis and vomiting noted. Patrizia notified. ordered NPO status and surgery for tomorrow at 12
--- NOTE | 2020-07-28 19:20 | NUR ---
RN ms opening notes Received Pt from morning nurse. Pt is laying in bed comfortably watching TV. Pt is alert and orientedX4. respiration is normal in room air. No SOB. No S/S of distress noted. Iv site at R hand# 22 is clean, intact and infusing well 0.45%Ns@ 75 ml/hr. Pt is able to ambulates with a steady gait. Safety precautions is maintained. Bed at low position, brakes locked, side rails upX2, hob elevated and call light is within reach. Will continue to monitor.
--- NOTE | 2020-07-28 19:39 | NUR ---
patient refused ng tube insertion for intermittent suction. pros and cons explained to patient. patient verbalized understanding.
--- NOTE | 2020-07-28 19:40 | NUR ---
RN notes Pt stated 'I need my escitalopram oxalate 20 mg daily and buspirone hcl 10 mg/TID. Informed and notified MD regarding Pt's home meds. MD ordered buspirone and escitalopram. Order carried out.
--- NOTE | 2020-07-28 19:50 | NUR ---
RN CLOSING NOTE PATIENT IN BED RESTING IN RIGHT LATERAL POSITION. PATIENT IS IN NO ACUTE DISTRESS, PATIENT IS ON ROOM AIR, TOLERATING WELL. NO SOB NOTED. RIGHT HAND 22 ROBYN RUNNING 1/2 NS AT 125 ML/HR. SAFETY PRECAUTIONS ON, BED IS LOCKED IN THE LOWEST POSITION, WITH SIDE RAILS UP, CALL LIGHT WITHIN REACH. WILL ENDORSE CARE TO UPCOMING SHIFT.
[2020-07-28 20:00] VITALS: BP 137/82
[2020-07-28] MEDS: busPIRone 5 MG TABLET PO SCH (20:04)
[2020-07-28] MEDS: ESCITALOPRAM OXALATE (10 MG) 10 MG TABLET PO SCH (20:04)
--- NOTE | 2020-07-28 21:00 | NUR ---
RN notes Pt is complaining of pain on her abdomen and requesting morphine. administered morphine 1 mg/0.5 ml/iv push for pain per Pt's requested. VS is stable. Safety precautions is maintained. Will continue to monitor.
[2020-07-28] MEDS: ZOLPIDEM TARTRATE 5 MG TABLET PO PRN (22:03)
--- NOTE | 2020-07-28 22:03 | NUR ---
RN notes Pt is having insomnia and requesting ambien. Administered ambien 5 mg/po as ordered for sleeping. Safety precautions is maintained. Will continue to monitor.
[2020-07-29] VITALS (7 sets, daily range): BP systolic 127–141; BP diastolic 71–78
[2020-07-29 02:24] LABS: BASOPHILS # (AUTO) 0.1 /CMM (0.0-0.2); BASOPHILS % (AUTO) 0.6 % (0.0-2.0); HEMATOCRIT 43 % (33-45); HEMOGLOBIN 14.6 g/dL (11.5-14.8); LYMPHOCYTES # (AUTO) 2.2 /CMM (0.8-4.8); LYMPHOCYTES % (AUTO) 21.6 % (20.0-44.0); MEAN CORPUSCULAR HGB CONC 34 g/dl (31.0-36.0); MEAN CORPUSCULAR VOLUME 99 fL (82-100); MONOCYTES % (AUTO) 9.9 % (2.0-12.0); NEUTROPHILS % (AUTO) 66.9 % (43.0-81.0); PLATELET COUNT (AUTO) 300 /CMM (150-450); RED BLOOD CELL COUNT(AUTO) 4.32 MIL/uL (4.0-5.2); WHITE BLOOD COUNT (AUTO) 10.4 K/uL (4.3-11.0)
[2020-07-29 02:43] LABS: CALCIUM, SERUM 9.3 mg/dL (8.5-10.1); CREATININE 0.7 mg/dL (0.6-1.3); POTASSIUM 3.4 mmol/L (3.5-5.1)
[2020-07-29 02:49] LABS: ALBUMIN 3.5 g/dL (3.4-5.0); BILIRUBIN,TOTAL 0.6 mg/dL (0.2-1.0); TOTAL PROTEIN, SERUM 7.7 g/dL (6.4-8.2)
--- NOTE | 2020-07-29 03:00 | NUR ---
RN notes Informed and notified to MD regarding Pt's potassium is 3.4. Awaiting for MD to call back. Charge nurse is aware and informed.
[2020-07-29] MEDS: PIPERACILLIN /TAZOBACTAM 3.375 G in IV D5W 100 ML IV SCH ×3 (03:09→21:58)
--- NOTE | 2020-07-29 04:20 | NUR ---
RN notes Received ordered from for potassium chloride 40 meq IV x 1 bag at 50 ml/hr. Order carried out.
[2020-07-29] MEDS ORDERED: POTASSIUM CL. PREMIX PERIPHER. 50 ML IV SCH (04:30)
--- NOTE | 2020-07-29 06:50 | NUR ---
RN ms closing notes Pt is resting in bed comfortably. Pt is alert and orientedX4. Respiration is normal in room air. No SOB. No S/S of distress noted. Vs is stable. Routine meds were given as ordered. Iv site at R hand# 22 is clean, intact and infusing well 0.45%Ns@ 75 ml/hr. Pt status is NPO. Safety precautions is maintained. Bed at low position, brakes locked, side rails upX2, hob elevated and call light is within reach. Will endorse to morning nurse for CELSO.
--- NOTE | 2020-07-29 07:30 | NUR ---
MS RN OPENING NOTES Patient is resting in bed, awake and verbally responsive. Alert and oriented X4, able to make needs known. Respiration is even and unlabored, tolerating room air. IV line on R hand #22 intact and patent, IVF of 0.45% NS @75 ml/hr, infusing well. Currently NPO for scheduled surgery today w/ Dr. Joe; patient stated surgery is at 1200 today, aware of NPO status, and requested for pain medication. Safety precautions in place: bed at low position, brakes locked, side rails up X2, call light is within reach. Will continue to monitor.
[2020-07-29] MEDS: MORPHINE SULFATE INJ 2 MG/ML DISP.SYRIN IV PRN (07:38)
[2020-07-29] MEDS: AMLODIPINE BESYLATE 5 MG TABLET PO SCH (09:00)
[2020-07-29] MEDS: ESCITALOPRAM OXALATE (10 MG) 10 MG TABLET PO SCH (09:00)
[2020-07-29] MEDS: busPIRone 5 MG TABLET PO SCH ×3 (09:00→16:58)
[2020-07-29] MEDS: PANTOPRAZOLE 40 MG VIAL IV SCH (09:25)
--- NOTE | 2020-07-29 09:34 | NUR ---
PATIENT MAINTAINED ON NPO FOR SCHEDULED PROCEUDURE. WILL MONITOR PATIENT CLOSELY.
[2020-07-29] MEDS: POTASSIUM CL. PREMIX PERIPHER. 50 ML IV SCH ×2 (10:07→11:36)
[2020-07-29] MEDS ORDERED: KETOROLAC TROMETHAMINE INJ 30 MG/ML VIAL ONE (11:32)
[2020-07-29] MEDS ORDERED: GLYCOPYRROLATE 0.2 MG/ML VIAL ONE ×2 (11:32→11:33)
[2020-07-29] MEDS ORDERED: HYDROMORPHONE INJ 2 MG/ML DISP.SYRIN ONE (11:32)
[2020-07-29] MEDS ORDERED: ROCURONIUM BROMIDE 50 MG/5 ML ONE (11:33)
--- NOTE | 2020-07-29 13:13 | NUR ---
PATIENT STILL ON NPO FOR PENDING PROCEDURE. AWAITING PICK-UP FROM OR.
[2020-07-29] MEDS ORDERED: BUPIVACAINE MPF W/EPI 0.25% 30 ML VIAL ONE (13:57)
[2020-07-29] MEDS ORDERED: LIDOCAINE HCL/PF 1% 30 ML SDV ONE (13:58)
[2020-07-29] MEDS ORDERED: ANESTHESIA TRAY IN PYXIS 1 EA TRAY MC ONE (14:13)
--- NOTE | 2020-07-29 14:14 | NUR ---
RN NOTES RECEIVED YADIRA FROM MARGARET, MYLES OLSON, AND INFORMED THAT PATIENT IS SCHEDULED FOR SURGERY TODAY AT 1700, PICKUP TIME AT AROUND 1630.
--- NOTE | 2020-07-29 14:56 | NUR ---
RN NOTES SPOKE W/ DR. GOOD REGARDING DR. HYMAN, RADIOLOGIST, CONCERN ABOUT SB XRAY. PER DR. GOOD, HE ALREADY SPOKE W/ RADIOLOGIST ABOUT PATIENT. ALSO INFORMED PATIENT ABOUT SCHEDULED SURGERY TODAY AT 1700 W/ DR. DORADO. WILL CONTINUE TO MONITOR.
[2020-07-29] MEDS ORDERED: FENTANYL PF 250MCG/5ML AMPUL ONE (16:48)
[2020-07-29] MEDS ORDERED: MIDAZOLAM HCL 2 MG/2ML VIAL ONE (16:49)
[2020-07-29] MEDS ORDERED: FAMOTIDINE/PF INJ 20 MG/2 ML VIAL IV ONE (17:16)
--- NOTE | 2020-07-29 17:18 | NUR ---
PATIENT PICKED-UP BY 2 OR NURSES ON HER BED FOR SCHEDULED PROCEDURE. PATIENT IS ALERT AND ORIENTED WITH NO SIGNS OF DISTRESS.
[2020-07-29] MEDS ORDERED: METRONIDAZOLE 500MG/ NS 100ML 100 ML IV ONE (18:07)
[2020-07-29] MEDS ORDERED: BACITRACIN ZINC OINT PACKET 1 EA PACKET TP ONE (19:26)
[2020-07-29] MEDS ORDERED: MORPHINE SULFATE INJ 4 MG/ML DISP.SYRIN ONE (20:06)
[2020-07-29] MEDS ORDERED: ONDANSETRON HCL/PF 4 MG/2 ML VIAL ONE (20:33)
--- NOTE | 2020-07-29 20:50 | NUR ---
MS RN OPENING NOTE PT TRANSPORTED BY BED TO UNIT AT THIS TIME. S/P EXPLORATORY LAPAROTOMY LYSIS OF ADHESIONS, PARTIAL RESECTION OF SMALL BOWEL WITH SIDE TO SIDE ANASTAMOS. RECEIVED BEDSIDE REPORT FROM MYLES VENTURA RN. VS BP 139/76, HR 89, RR 18, T 97.6, SPO2 97% ON RA. PT IS AWAKE AND ALERT, A/O X4. NO SOB NOTED. NO S/S OF RESPIRATORY DISTRESS. IV ACCESS IN RIGHT HAND #22, INTACT AND PATENT. ABDOMINAL DRESSING INTACT, DRY, AND NO BLEEDING NOTED. SAFETY MEASURES MAINTAINED. BED IN LOWEST LOCKED POSITION, HOB ELEVATED, SIDE RAILS UP X2. CALL LIGHT AND TABLE WITHIN REACH. WILL CONTINUE TO MONITOR.
[2020-07-29] MEDS ORDERED: HYDROMORPHONE 1 MG/1 ML DISP.SYRIN IV PRN (21:00)
[2020-07-29] MEDS: GABAPENTIN 300 MG CAPSULE PO SCH (22:00)
[2020-07-29] MEDS: ACETAMINOPHEN 325 MG TABLET PO SCH (22:00)
[2020-07-29] MEDS: ZOLPIDEM TARTRATE 5 MG TABLET PO PRN (22:19)
[2020-07-29] MEDS: IBUPROFEN 400 MG TABLET PO SCH (22:19)
--- NOTE | 2020-07-29 22:19 | NUR ---
PT C/O INSOMNIA AND REQUESTED AMBIEN. ADMINISTERED AMBIEN 5 MG PO ORDERED FOR SLEEPING. SAFETY PRECAUTIONS MAINTAINED. WILL CONTINUE TO MONITOR.
--- NOTE | 2020-07-29 23:21 | NUR ---
RECEIVED POST OP ORDERS FROM DR. DORADO FOR PT TO START CLEAR LIQUID DIET IF PT IS NOT NAUSEATED, TO RESUME ACTIVITIES TOLERATED ON 07/30/20, AND VS PER ROUTINE. ALSO RECEIVED ORDERS FOR CBC, BMP, MG, PHOSPHORUS IN AM 07/30/20. ORDERS READ BACK AND CARRIED OUT. WILL CONTINUE TO MONITOR.
[2020-07-30 00:05] VITALS: BP 127/71
[2020-07-30] MEDS: MORPHINE SULFATE INJ 2 MG/ML DISP.SYRIN IV PRN ×3 (02:28→18:56)
--- NOTE | 2020-07-30 02:28 | NUR ---
MS RN PAIN PT C/O SHARP ABDOMINAL PAIN, RATED 9/10 ON PAIN SCALE. VSS. PER PT REQUEST, ADMINISTERED MORPHINE SULFATE 1 MG IV Q4H PRN AT THIS TIME. WILL CONTINUE TO MONITOR.
[2020-07-30] MEDS: PIPERACILLIN /TAZOBACTAM 3.375 G in IV D5W 100 ML IV SCH ×3 (04:02→19:50)
[2020-07-30 04:05] VITALS: BP 131/74
[2020-07-30] MEDS: ACETAMINOPHEN 325 MG TABLET PO SCH ×3 (06:00→21:12)
[2020-07-30] MEDS: IBUPROFEN 400 MG TABLET PO SCH ×3 (06:01→21:11)
[2020-07-30] MEDS: GABAPENTIN 300 MG CAPSULE PO SCH ×3 (06:05→21:12)
[2020-07-30 06:31] LABS: HEMATOCRIT 44 % (33-45); HEMOGLOBIN 14.3 g/dL (11.5-14.8); LYMPHOCYTES # (AUTO) 1.1 /CMM (0.8-4.8); LYMPHOCYTES % (AUTO) 6.1 % (20.0-44.0); MEAN CORPUSCULAR HGB CONC 32 g/dl (31.0-36.0); MEAN CORPUSCULAR VOLUME 102 fL (82-100); MONOCYTES # (AUTO) 1.1 /CMM (0.1-1.30); NEUTROPHILS # (AUTO) 16.4 /CMM (1.8-8.9); NEUTROPHILS % (AUTO) 87.9 % (43.0-81.0); PLATELET COUNT (AUTO) 324 /CMM (150-450); RED BLOOD CELL COUNT(AUTO) 4.34 MIL/uL (4.0-5.2); WHITE BLOOD COUNT (AUTO) 18.7 K/uL (4.3-11.0)
--- NOTE | 2020-07-30 06:41 | NUR ---
MS RN CLOSING NOTE PT IS AWAKE IN BED AT THIS TIME. A/O X4. S/P EXPLORATORY LAPAROTOMY LYSIS OF ADHESIONS, PARTIAL RESECTION OF SMALL BOWEL WITH SIDE TO SIDE ANASTAMOS. PT IS STABLE ON ROOM AIR. NO SOB NOTED. NO S/S OF RESPIRATORY DISTRESS. IV ACCESS IS INTACT, PATENT, AND FLUSHING WELL. ABDOMINAL DRESSING INTACT, DRY, AND NO BLEEDING NOTED. ALL CARE, NEEDS, AND MEDICATIONS ADMINISTERED ANTICIPATED PER ORDER. PAIN MANAGEMENT ADMINISTERED PER ORDER. SAFETY MEASURES MAINTAINED. BED IN LOWEST LOCKED POSITION, HOB ELEVATED, SIDE RAILS UP X2. CALL LIGHT AND TABLE WITHIN REACH. WILL ENDORSE TO ONCOMING NURSE FOR CONTINUITY OF CARE.
[2020-07-30 07:11] LABS: CALCIUM, SERUM 8.8 mg/dL (8.5-10.1); CREATININE 0.8 mg/dL (0.6-1.3); PHOSPHORUS 4.9 mg/dL (2.5-4.9); POTASSIUM 4.6 mmol/L (3.5-5.1)
--- NOTE | 2020-07-30 07:18 | NUR ---
MS RN OPENING NOTE RECEIVED PATIENT ALERT AND ORIENTED X 4 AND AMBULATORY. ABLE TO MAKE NEEDS KNOWN. NO COMPLAINTS OF PAIN AT THIS TIME. PATIENT ON ROOM AIR WITH NO SIGNS OF DISTRESS. PATIENT WITH IV PERIPHERAL LINE WITH RIGHT HAND G#22 WITH 1/2 NORMAL SALINE AT 75ML/HR, PATENT AND INTACT. PATIENT WITH DRESSING ON ABDOMEN, WT DRESSING DRY AND INTACT. NEEDS ATTENDED. PATIENT ON CLEAR LIQUID DIET, TOLERATED WELL AND NO COMPLAINTS OF NAUSEA AND VOMITING NOTED. CALL LIGHT AND BEDSIDE TABLE WITHIN REACH. ASPIRATION, FALL AND SAFETY PRECAUTIONS MAINTAINED. WILL CONTINUE TO MONITOR.
--- NOTE | 2020-07-30 07:54 | NUR ---
PATIENT REQUESTED TO CHANGE DIET FROM CLEAR LIQUID TO SOFT DIET. PATIENT ABLE TO TOLERATE CLEAR LIQUID. MD NOTIFIED WITH ORDERS MADE AND CARRIED OUT
[2020-07-30 08:00] VITALS: BP 136/71
[2020-07-30] MEDS: ESCITALOPRAM OXALATE (10 MG) 10 MG TABLET PO SCH (08:29)
[2020-07-30] MEDS: AMLODIPINE BESYLATE 5 MG TABLET PO SCH (08:30)
[2020-07-30] MEDS: PANTOPRAZOLE 40 MG VIAL IV SCH (08:30)
[2020-07-30] MEDS: busPIRone 5 MG TABLET PO SCH ×3 (08:30→17:26)
[2020-07-30 16:00] VITALS: BP 133/86
--- NOTE | 2020-07-30 18:47 | NUR ---
RN CLOSING NOTE PATIENT IN BED RESTING WITH NO SIGNS OF DISTRESS. PATIENT IS ON ROOM AIR, TOLERATING WELL. NO SOB NOTED. STILL WITH RIGHT HAND 22 GAUGE. SAFETY PRECAUTIONS ON, BED IS LOCKED IN THE LOWEST POSITION, WITH SIDE RAILS UP, CALL LIGHT WITHIN REACH. WILL ENDORSE TO INCOMING SHIFT FOR CONTINUITY OF CARE
[2020-07-30 20:00] VITALS: BP 160/94
--- NOTE | 2020-07-30 20:00 | NUR ---
MS RN OPENING NOTE RECEIVED PT AWAKE IN BED. A/O X4. PT STABLE ON ROOM AIR. NO SOB NOTED. NO S/S OF RESPIRATORY DISTRESS. PT IS AMBULATORY WITH BRP. PT HAS NO C/O PAIN AT THIS TIME. IV ACCESS IN RIGHT HAND #22, INTACT AND PATENT. ABDOMINAL DRESSING INTACT, DRY, AND NO BLEEDING NOTED. SAFETY MEASURES MAINTAINED. BED IN LOWEST LOCKED POSITION, HOB ELEVATED, SIDE RAILS UP X2. CALL LIGHT AND TABLE WITHIN REACH. WILL CONTINUE WITH PLAN OF CARE.
[2020-07-30] MEDS ORDERED: IBUPROFEN 800 MG TABLET PO SCH (21:00)
[2020-07-31] MEDS: ZOLPIDEM TARTRATE 5 MG TABLET PO PRN ×2 (00:16→21:46)
--- NOTE | 2020-07-31 00:30 | NUR ---
IV ACCESS INSERTED IN RFA #22, GOOD BLOOD RETURN NOTED. INTACT, PATENT, AND FLUSHING WELL. PT TOLERATED WELL. WILL CONTINUE WITH PLAN OF CARE.
[2020-07-31] MEDS: MORPHINE SULFATE INJ 2 MG/ML DISP.SYRIN IV PRN ×4 (00:45→19:09)
--- NOTE | 2020-07-31 00:45 | NUR ---
MS RN PAIN PT C/O SHARP ABDOMINAL PAIN, RATED 9/10 ON PAIN SCALE. VSS. PER PT REQUEST, ADMINISTERED MORPHINE 1 MG IV Q4H PRN AT THIS TIME. WILL CONTINUE TO MONITOR.
[2020-07-31] MEDS: PIPERACILLIN /TAZOBACTAM 3.375 G in IV D5W 100 ML IV SCH ×3 (03:33→20:41)
[2020-07-31] MEDS: ACETAMINOPHEN 325 MG TABLET PO SCH ×3 (05:34→21:41)
[2020-07-31] MEDS: IBUPROFEN 400 MG TABLET PO SCH ×3 (05:34→21:41)
[2020-07-31] MEDS: GABAPENTIN 300 MG CAPSULE PO SCH ×3 (05:35→21:41)
[2020-07-31 05:58] LABS: BASOPHILS % (AUTO) 0.1 % (0.0-2.0); EOSINOPHILS % (AUTO) 0.9 % (0.0-6.0); HEMATOCRIT 39 % (33-45); HEMOGLOBIN 12.9 g/dL (11.5-14.8); LYMPHOCYTES % (AUTO) 11.6 % (20.0-44.0); MEAN CORPUSCULAR HGB CONC 34 g/dl (31.0-36.0); MEAN CORPUSCULAR VOLUME 101 fL (82-100); MONOCYTES # (AUTO) 0.7 /CMM (0.1-1.30); MONOCYTES % (AUTO) 8.5 % (2.0-12.0); NEUTROPHILS # (AUTO) 6.6 /CMM (1.8-8.9); NEUTROPHILS % (AUTO) 78.9 % (43.0-81.0); PLATELET COUNT (AUTO) 245 /CMM (150-450); RED BLOOD CELL COUNT(AUTO) 3.82 MIL/uL (4.0-5.2); WHITE BLOOD COUNT (AUTO) 8.4 K/uL (4.3-11.0)
[2020-07-31 06:14] LABS: CALCIUM, SERUM 8.8 mg/dL (8.5-10.1); CREATININE 0.6 mg/dL (0.6-1.3); POTASSIUM 3.6 mmol/L (3.5-5.1)
--- NOTE | 2020-07-31 06:52 | NUR ---
MS RN CLOSING NOTE PT IS AWAKE IN BED AT THIS TIME. A/O X4. PT IS STABLE ON ROOM AIR. NO SOB NOTED. NO S/S OF RESPIRATORY DISTRESS. IV ACCESS IS INTACT, PATENT, AND FLUSHING WELL. ABDOMINAL DRESSING INTACT, DRY, AND NO BLEEDING NOTED. ALL CARE, NEEDS, AND MEDICATIONS ADMINISTERED ANTICIPATED PER ORDER. PAIN MANAGEMENT ADMINISTERED PER ORDER. SAFETY MEASURES MAINTAINED. BED IN LOWEST LOCKED POSITION, HOB ELEVATED, SIDE RAILS UP X2. CALL LIGHT AND TABLE WITHIN REACH. WILL ENDORSE TO ONCOMING NURSE FOR CONTINUITY OF CARE.
--- NOTE | 2020-07-31 07:32 | NUR ---
MS RN OPENING NOTES RECEIVED PATIENT IN BED AWAKE. ALERT AND ORIENTED X4. PATIENT TOLERATING WELL ON ROOM AIR. NO SIGNS OR SYMPTOMS OF DISTRESS NOTED. IV ACCESS ON R HAND#22 PATENT AND INTACT. SAFETY MEASURES IN PLACE, BED LOCKED IN LOWEST POSITION. SIDE RAILS UP X 2. CALL LIGHT IS WITHIN REACH. WILL CONTINUE TO MONITOR THROUGHOUT SHIFT.
[2020-07-31] MEDS: PANTOPRAZOLE 40 MG VIAL IV SCH (08:46)
[2020-07-31] MEDS: busPIRone 5 MG TABLET PO SCH ×3 (08:47→17:14)
[2020-07-31] MEDS: AMLODIPINE BESYLATE 5 MG TABLET PO SCH (08:48)
[2020-07-31] MEDS: ESCITALOPRAM OXALATE (10 MG) 10 MG TABLET PO SCH (08:48)
[2020-07-31] MEDS ORDERED: GABAPENTIN 300 MG CAPSULE PO SCH (09:00)
--- NOTE | 2020-07-31 12:00 | NUR ---
MS RN NOTES PATIENT SEEN AND EVALUATED BY GEMMA ISAAC , SURGICAL DRESSING WAS REMOVED BY GEMMA PIÑA, SURGICAL SITE WITH ÁNGELA INTACT, NO SIGN AND SYMPTOMS OF INFECTION NOTED, NO DRAINAGE NOTED. PER GEMMA PIÑA JUST LEAVE IT OPEN TO AIR. FOLLOW UP VISIT WITH DR DORADO IN 1 WEEK , SHOWER AND WOUND CARE INSTRUCTIONS PROVIDED TO LEAVE SURGICAL SITE OPEN TO AIR BY GEMMA ISAAC. Addendum: 07/31/20 at 1651 by [email or web address] KENNEDY RN ADDENDUM: PER GEMMA ISAAC MAY DISCHARGE PATIENT ONCE PATIENT PASS GAS ALREADY
[2020-07-31] MEDS ORDERED: METRONIDAZOLE 500 MG TABLET PO SCH (13:00)
[2020-07-31] MEDS: ONDANSETRON HCL/PF 4 MG/2 ML VIAL IVP PRN (19:07)
--- NOTE | 2020-07-31 19:26 | NUR ---
MS RN CLOSING NOTE PATIENT IS AWAKE IN BED. ALERT AND ORIENTED X4. PT IS STABLE ON ROOM AIR. NO SOB NOTED. NO SIGNS AND SYMPTOMS OF DISTRESS NOTED. IV ACCESS IS INTACT, PATENT, AND FLUSHING WELL. NO BM AND DID NOT PASS GAS YET AT THIS TIME, NOTIFIED DR. DORADO, REQUESTING FOR BOWEL REGIMEN IF HE WANTS TO ORDER. AWAITING FOR CALL BACK. ALL CARE, NEEDS, AND MEDICATIONS ADMINISTERED ANTICIPATED PER ORDER. PAIN MANAGEMENT ADMINISTERED PER ORDER. SAFETY MEASURES MAINTAINED. BED IN LOWEST LOCKED POSITION, HOB ELEVATED, SIDE RAILS UP X2. CALL LIGHT AND TABLE WITHIN REACH. WILL ENDORSE TO ONCOMING NURSE FOR CONTINUITY OF CARE.
--- NOTE | 2020-07-31 19:35 | NUR ---
MS RN OPENING NOTES: RECEIVED RESIDENT SLEEP IN BED COMFORTABLE, EASILY AROUSABLE, BED IN LOW POSITION, CALL LIGHTS WITHIN REACH, NO COMPLAIN OF PAIN AND DISCOMFORT AT THIS TIME A/O X4 WITH BRP, ON RA AT 94% SATURATION, PATIENT WAS DUE FOR DISCHARGE WAS ON HOLD DUE TO (-) PASSING OF FLATUS, KEPT CLEAN ANDD RY, ALL NEEDS MET, WILL CONTINUE TO MONITOR.
[2020-07-31 20:00] VITALS: BP 142/81
[2020-07-31 21:31] VITALS: BP 142/81
[2020-07-31 21:39] VITALS: BP 142/81
--- NOTE | 2020-07-31 21:50 | NUR ---
RN NOTES PATIENT WANT TO CHANGE HER AMBIEN TO 10MG PO, GOT AN ORDER FROM PATY GONZALEZ, AMBIEN 10MG PO PRN, ORDER NOTED AND CARRIED OUT
[2020-07-31] MEDS ORDERED: ZOLPIDEM TARTRATE 10 MG TABLET PO PRN (22:30)
[2020-08-01] MEDS: MORPHINE SULFATE INJ 2 MG/ML DISP.SYRIN IV PRN (01:12)
--- NOTE | 2020-08-01 01:21 | NUR ---
RN NOTES: RESIDENT COMPLAIN OF ABDOMINAL PAIN PS-10 MORPHINE GIVEN 0.5ML FOR PS-10
[2020-08-01] MEDS: PIPERACILLIN /TAZOBACTAM 3.375 G in IV D5W 100 ML IV SCH (04:08)
[2020-08-01 05:10] VITALS: BP 142/81
[2020-08-01] MEDS: ACETAMINOPHEN 325 MG TABLET PO SCH (06:11)
[2020-08-01] MEDS: IBUPROFEN 400 MG TABLET PO SCH (06:12)
[2020-08-01] MEDS: GABAPENTIN 300 MG CAPSULE PO SCH (06:12)
[2020-08-01 06:28] LABS: BASOPHILS % (AUTO) 0.1 % (0.0-2.0); EOSINOPHILS % (AUTO) 1.3 % (0.0-6.0); HEMATOCRIT 41 % (33-45); HEMOGLOBIN 13.6 g/dL (11.5-14.8); LYMPHOCYTES # (AUTO) 0.7 /CMM (0.8-4.8); LYMPHOCYTES % (AUTO) 6.4 % (20.0-44.0); MEAN CORPUSCULAR HGB CONC 34 g/dl (31.0-36.0); MEAN CORPUSCULAR VOLUME 101 fL (82-100); MONOCYTES % (AUTO) 9.5 % (2.0-12.0); NEUTROPHILS # (AUTO) 8.4 /CMM (1.8-8.9); NEUTROPHILS % (AUTO) 82.7 % (43.0-81.0); PLATELET COUNT (AUTO) 273 /CMM (150-450); RED BLOOD CELL COUNT(AUTO) 4.03 MIL/uL (4.0-5.2); WHITE BLOOD COUNT (AUTO) 10.2 K/uL (4.3-11.0)
--- NOTE | 2020-08-01 06:37 | NUR ---
MS RN CLOSING NOTE: PATIENT SLEEP IN BED COMFORTABLY, BED IN LOW POSITION, CALL LIGHTS WITHN REACH, NO COMPLAIN OF PAIN AND DISCOMFORT AT THIS TIME, PATIENT IS A/O X4, ON RA NO RESP DISTRESS WAS OBSERVED, PATIENT IS AMBULATORY WITH SUPERVISION, WITH IV LINE AT L HAND #20 WITH ONGOING ATB INFUSING WELL, PATIENT HAS ABD ÁNGELA IN PLACE , NO SIGN OF INFECTION WAS OBSERVED, ON D/C SCHEDULE BUT ON HOLD DUE TO (-) BM AND PASSAGE OF FLATUS. x1 BM IN AM, PATIENT WAS KEPT CLEAN AND DRY, WILL CONTINUE TO MONITOR.
[2020-08-01 08:00] VITALS: BP 127/79
--- NOTE | 2020-08-01 08:00 | NUR ---
RN OPENING NOTE PT IS AWAKE IN BED. A/O X3 AND YI SPEAKING. PAIN PRESENT AND MEDS GIVEN TO PT. NO NAUSEA PRESENT. CURRENTLY ON RA WITH NO SOB OR RESPIRATORY DISTRESS PRESENT. PT IS SELF AMBULATORY WITH BATHROOM PRIVILEGES. ABDOMINAL DRESSING INTACT AND PRESENT. NO EDEMA PRESENT. IV PRESENT ON R HAND 22G AND FLUSHES WELL. SAFETY MEASURES IN PLACE. SIDE RAILS RAISED. BED LOWERED. CALL LIGHT WITHIN REACH. WILL CONTINUE TO MONITOR.
[2020-08-01] MEDS: PANTOPRAZOLE 40 MG VIAL IV SCH (08:12)
[2020-08-01 08:13] VITALS: BP 127/79
[2020-08-01] MEDS: AMLODIPINE BESYLATE 5 MG TABLET PO SCH (08:13)
[2020-08-01] MEDS: ESCITALOPRAM OXALATE (10 MG) 10 MG TABLET PO SCH (08:13)
[2020-08-01] MEDS: busPIRone 5 MG TABLET PO SCH (08:13)
--- NOTE | 2020-08-01 09:16 | NUR ---
[employer] PRINCIPAL NOTE PATIENT DISCHARGED HOME VIA PRIVATE CAR ACCOMPANIED BY FAMILY. [employer] UTILIZED AND EDUCATION GIVEN TO PATIENT. F/U WITH PCP AND DR. DORADO EDUCATED TO PT. BELONGINGS LIST CHECKED AND BELONGINGS GIVEN TO PATIENT. SKIN IS INTACT. IV LINE REMOVED AND ID BAND REMOVED PRIOR TO DISCHARGE.
== END 2020-08-01 09:15 | disposition home or self-care (01) | DRG 329 ==
LOC: ER 06:50 → MED 11:07
PROVIDERS: ADMIT Internal Medicine; ATTEND Family Medicine
PROC: 0DT84ZZ Resection of Small Intestine, Percutaneous Endoscopic Approach (ICD-10-PCS; principal; 2020-07-29)
PROC: 0DN84ZZ Release Small Intestine, Percutaneous Endoscopic Approach (ICD-10-PCS; 2020-07-29)
DX: K56.609 Unspecified intestinal obstruction, unspecified as to partial versus complete obstruction (principal); N17.0 Acute kidney failure with tubular necrosis; N39.0 Urinary tract infection, site not specified; E87.1 Hypo-osmolality and hyponatremia; K86.1 Other chronic pancreatitis; D72.829 Elevated white blood cell count, unspecified; I10 Essential (primary) hypertension; Z20.822 Contact with and (suspected) exposure to COVID-19; K56.51 Intestinal adhesions [bands], with partial obstruction; E87.6 Hypokalemia; F17.210 Nicotine dependence, cigarettes, uncomplicated; Z88.5 Allergy status to narcotic agent; Z79.899 Other long term (current) drug therapy; M21.619 Bunion of unspecified foot; Z98.890 Other specified postprocedural states; F10.10 Alcohol abuse, uncomplicated; T50.8X5A Adverse effect of diagnostic agents, initial encounter; Y92.9 Unspecified place or not applicable; E86.1 Hypovolemia; B96.20 Unspecified Escherichia coli [E. coli] as the cause of diseases classified elsewhere; Z87.11 Personal history of peptic ulcer disease
CPT/HCPCS: 36415; 71045-TC; 74018; 74250-TC; 80048-TC; 80053-TC; 80061-TC; 80076-TC; 81001; 83690-TC; 83735-TC; 84075-TC; 84100-TC; 85025-TC; 85610-TC; 85730-TC; 86850-TC; 87081-TC; 87086-TC; 87186-TC; 88307-TC; A6253; C9113; C9803; G0378; J0690; J1170; J1885; J2250; J2270; J2405; J2543; J2704; J2765; J3010; J3480; J3490; J7030; J7040; J7050; J7060; Q9963; Q9967

== ENCOUNTER 2020-08-03 07:25 | Emergency (ER) | payer OTHER ==
[~2020-08-03] VITALS: Ht 170.2 cm; Wt 65.8 kg
[~2020-08-03 07:25] MED LIST changes: +PANT40TA49 PO
[2020-08-03] MEDS ORDERED: HYDROMORPHONE INJ 2 MG/ML DISP.SYRIN IV ONE (07:30)
[2020-08-03] MEDS ORDERED: IV NS 0.9% 1,000 ML BAG IV ONE (07:30)
[2020-08-03] MEDS ORDERED: ONDANSETRON HCL/PF 4 MG/2 ML VIAL IVP ONE (07:30)
[2020-08-03] MEDS ORDERED: ONDANSETRON HCL/PF 4 MG/2 ML VIAL ONE (08:10)
[2020-08-03] MEDS ORDERED: HYDROMORPHONE 1 MG/1 ML DISP.SYRIN ONE (08:10)
[2020-08-03 08:16] LABS: BASOPHILS % (AUTO) 0.2 % (0.0-2.0); EOSINOPHILS % (AUTO) 0.3 % (0.0-6.0); HEMATOCRIT 41 % (33-45); HEMOGLOBIN 14.1 g/dL (11.5-14.8); LYMPHOCYTES # (AUTO) 0.9 /CMM (0.8-4.8); LYMPHOCYTES % (AUTO) 11.1 % (20.0-44.0); MEAN CORPUSCULAR HGB CONC 34 g/dl (31.0-36.0); MEAN CORPUSCULAR VOLUME 100 fL (82-100); MONOCYTES # (AUTO) 0.7 /CMM (0.1-1.30); MONOCYTES % (AUTO) 8.5 % (2.0-12.0); NEUTROPHILS # (AUTO) 6.2 /CMM (1.8-8.9); NEUTROPHILS % (AUTO) 79.9 % (43.0-81.0); PLATELET COUNT (AUTO) 386 /CMM (150-450); RED BLOOD CELL COUNT(AUTO) 4.11 MIL/uL (4.0-5.2); WHITE BLOOD COUNT (AUTO) 7.8 K/uL (4.3-11.0)
--- NOTE | 2020-08-03 08:24 | NUR ---
Patient awake alert non distress medication given continue to monitor .
[2020-08-03 08:25] LABS: CALCIUM, SERUM 9.3 mg/dL (8.5-10.1); CREATININE 0.7 mg/dL (0.6-1.3)
[2020-08-03 08:27] LABS: ALBUMIN 3.5 g/dL (3.4-5.0); BILIRUBIN,DIRECT 0.1 mg/dL (0.0-0.2); BILIRUBIN,TOTAL 0.5 mg/dL (0.2-1.0); TOTAL PROTEIN, SERUM 7.9 g/dL (6.4-8.2)
--- NOTE | 2020-08-03 09:41 | NUR ---
Patient to bathroom urine obtained and send to lab .
[2020-08-03] MEDS ORDERED: ONDA4TAB11 PO (10:26)
--- NOTE | 2020-08-03 10:33 | NUR ---
dc home instruction given agrees to see PMD in AM . Removed salin lock LAC noted cath intact no edema no pain .
[2020-08-03 10:35] VITALS: BP 123/78
== END 2020-08-03 10:36 | disposition home or self-care (01) ==
LOC: ER 07:25
DX: R11.2 Nausea with vomiting, unspecified (principal); I10 Essential (primary) hypertension; F17.200 Nicotine dependence, unspecified, uncomplicated; Z98.890 Other specified postprocedural states; Z88.6 Allergy status to analgesic agent; Z79.899 Other long term (current) drug therapy
CPT/HCPCS: 36415; 74176; 80048; 80076; 85025; 85730; 96374; 96375; 99284; J1170; J2405; J7030